=== PATIENT | male | born 1990 | race Caucasian/White ===

== ENCOUNTER 2020-12-14 09:03 | Emergency (ER) | payer OTHER ==
[~2020-12-14] VITALS: Ht 185.4 cm; Wt 14.6 kg
[2020-12-14] MEDS ORDERED: LIDOcaine 1% W/epiNEPHrine 1:200,000 10ml vial IJ ONE (09:25)
[2020-12-14] MEDS ORDERED: HYDROcodone/acetaminophen 5mg/325mg tablet PO ONE (09:25)
[2020-12-14] MEDS ORDERED: TETanus/Pertussis (Acell)/Diphther VAC/PF (Tdap-Adult) 0.5ml syringe IMVAC ONE (09:25)
[2020-12-14] MEDS ORDERED: BACI28.42 TOP (11:09)
[2020-12-14] MEDS ORDERED: bacitracin 15gm ointment TP ONE (11:15)
[2020-12-14 11:58] VITALS: BP 130/80
== END 2020-12-14 12:04 | disposition home or self-care (01) ==
LOC: ER 09:05
DX: S91.311A Laceration without foreign body, right foot, initial encounter (principal); W23.0XXA Caught, crushed, jammed, or pinched between moving objects, initial encounter; Y93.89 Activity, other specified; Y92.89 Other specified places as the place of occurrence of the external cause; Y99.8 Other external cause status
CPT/HCPCS: 12002; 73630; 90471; 90715; 99283

== ENCOUNTER 2021-10-01 09:50 | Emergency (ER) | payer SELFPAY ==
[~2021-10-01] VITALS: Ht 182.9 cm; Wt 145.0 kg
[~2021-10-01 09:50] MED LIST: BACI28.42 TOP
[2021-10-01 09:58] VITALS: BP 147/92
[2021-10-01] MEDS ORDERED: ACYC-129 PO (11:39)
[2021-10-01] MEDS ORDERED: PRED10TA23 PO (11:39)
[2021-10-01] MEDS ORDERED: NAPR-56 PO (11:39)
== END 2021-10-01 12:05 | disposition home or self-care (01) ==
LOC: ER 09:50
DX: G51.0 Bell's palsy (principal); H05.20 Unspecified exophthalmos; Z79.2 Long term (current) use of antibiotics; Z79.899 Other long term (current) drug therapy
CPT/HCPCS: 93005; 99283